=== PATIENT | male | born 1995 | race African-American/Black ===

== ENCOUNTER 2019-08-20 15:12 | Emergency (ER) | payer MEDICAID ==
[~2019-08-20] VITALS: Ht 193 cm; Wt 87.5 kg
[2019-08-20 15:32] VITALS: Ht 193 cm; Wt 87.5 kg
[2019-08-20 19:03] VITALS: BP 108/58
== END 2019-08-20 19:03 | disposition home or self-care (01) ==
LOC: ED 15:12
DX: J40 Bronchitis, not specified as acute or chronic (principal); B35.3 Tinea pedis; F20.9 Schizophrenia, unspecified; Z88.8 Allergy status to other drugs, medicaments and biological substances

== ENCOUNTER 2019-08-20 19:38 | Inpatient (IN) | payer MEDICAID ==
[~2019-08-20] VITALS: Ht 185.4 cm; Wt 89.8 kg
--- NOTE | 2019-08-20 19:40 | NUR ---
PT CALLED TO TRIAGE, NO ANSWER.
--- NOTE | 2019-08-20 20:00 | NUR ---
PT PRESENTS TO ED FOR EVAL OF SI/HI. ON INITIAL CONTACT PT PRESENTS WITH FLAT AFFECT, IS CALM AND COOPERATIVE. PT AAOX4, GCS 15. STS HE'S HERE "FOR THE SUICIDAL AND HOMICIDAL THOUGHTS"; WHEN ASKED IF HE HAS A SPECIFIC PLAN PT STS, "YEAH, I'M THINKING ANOTHER 06/13. BUT WITH A LITTLE MORE SPICE". RESP E/U, APPEARS IN NO DISTRESS. DENIES PAIN OR OTHER COMPLAINTS. REPORTS PMHX SEIZURES, BIPOLAR, SCHIZOPHRENIA.
--- NOTE | 2019-08-20 20:15 | NUR ---
PT MOVED TO [facility] FOR CLOSE OBSERVATION.
--- NOTE | 2019-08-20 20:45 | NUR ---
DR CELESTE AT BEDSIDE
--- NOTE | 2019-08-20 20:49 | NUR ---
PT MOVED TO BED 11 FOR PRIVACY FOR TELE PSYCH
[2019-08-20 21:38] LABS: BASOPHIL % 0.2 % (0-2); PLATELET COUNT 201 x10^3mcL (130-400)
[2019-08-20 21:44] LABS: RED CELL DISTRIBUTION WIDTH 15.2 % (11.5-14.5)
[2019-08-20 21:48] LABS: CALCIUM 8.5 mg/dL (8.5-10.1); CARBON DIOXIDE 27.5 mmol/L (21-32); CHLORIDE SERUM 103 mmol/L (98-107); CREATININE SERUM 1.2 mg/dL (0.7-1.3); GFR1 > 60 mL/min; GLUCOSE SERUM 93 mg/dL (74-106); POTASSIUM SERUM 3.6 mmol/L (3.5-5.1); SODIUM SERUM 140 mmol/L (136-145)
[2019-08-20 21:56] LABS: ALBUMIN 3.7 g/dL (3.4-5.0); ALKALINE PHOSPHATASE 76 U/L (46-116); ALT/SGPT 38 U/L (16-63); AST/SGOT 40 U/L (15-37); BILIRUBIN TOTAL 0.5 mg/dL (0.20-1.00); TOTAL PROTEIN, SERUM 7.5 g/dL (6.4-8.2)
--- NOTE | 2019-08-20 23:40 | NUR ---
PT PLACED ON 5150 HOLD BY ALISA AMAYA. PT MOVED TO BED 5 AT THIS TIME; BELONGINGS COLLECTED, PLACED IN LABELED BELONGINGS BAG AND PLACED IN RADIO ROOM. PT CHANGED INTO GOWN. BED IN LOW LOCKED POSITION, CURTAIN OPEN PT IN CLEAR VIEW OF NURSE'S STATION. PT REMAINS CALM AND COOPERATIVE AT THIS TIME.
--- NOTE | 2019-08-21 01:04 | NUR ---
PT RESTING WITH EYES CLOSED WITH NO SIGNS OF DISTRESS.
--- NOTE | 2019-08-21 02:21 | NUR ---
PT APPEARS TO BE ASLEEP IN [facility]; RESP E/U WITH VISIBLE CHEST RISE, APPEARS IN NO DISTRESS. VSS ON SAMPLE TAILOR AND CONTINUOUS PULSE OX. REMAINS IN FULL VIEW OF NURSE'S STATION; WILL CONTINUE TO MONITOR FOR SAFETY. AWAITING PSYCH PLACEMENT.
--- NOTE | 2019-08-21 03:59 | NUR ---
PT APPEARS TO BE SLEEPING. RESP E/U, APPEARS IN NO DISTRESS. VSS.
--- NOTE | 2019-08-21 05:58 | NUR ---
PT RESTING IN GURNEY, RESP E/U, NO DISTRESS NOTED. VSS ON TALCER AND CONTINUOUS PULSE OX. AWAITING PSYCH PLACEMENT.
--- NOTE | 2019-08-21 07:05 | NUR ---
REPORT RECEIVED FROM SONIA Morin RN. ALL QUESTIONS AND CONCERNS ADDRESSED AT THIS TIME
--- NOTE | 2019-08-21 07:30 | NUR ---
PT AWAKE AND ALERT. PT PROVIDED BREAKFAST AT THIS TIME. PT STATES HE "STILL FEELS DEPRESSED" HOWEVER PT DENIES PLAN AT THIS TIME
--- NOTE | 2019-08-21 08:30 | NUR ---
Received report from maintenance mechanic 2nd shift. Packets were faxed to the following facilities: [facility] [place]
--- NOTE | 2019-08-21 11:08 | NUR ---
PT PROVIDED WITH PEANUT BUTTER AND JELLY AND TUNA SANDWHICH ALONG WITH A 7UP PER PT REQUEST. PT SITTING UP IN BED EATING. NAD AT THIS TIME
--- NOTE | 2019-08-21 11:28 | NUR ---
FAx to the following facilities: [facility]. S/W Altagracia Pro
--- NOTE | 2019-08-21 12:02 | NUR ---
Fax packet to [facility]
--- NOTE | 2019-08-21 12:12 | NUR ---
Packet faxed to [facility]. S/W Jia
--- NOTE | 2019-08-21 12:15 | NUR ---
Fax packet to [facility]. s/W Damian
--- NOTE | 2019-08-21 14:07 | NUR ---
[facility] SENT FOR MEDICAL CLEARANCE
--- NOTE | 2019-08-21 14:41 | NUR ---
PT PROVIDED WITH ANOTHER KACEY AT THIS TIME PER REQUEST. NAD AT THIS TIME
[2019-08-21 14:57] LABS: AMPHETAMINE QUAL UR NONE DETECTED (See below)
--- NOTE | 2019-08-21 17:15 | NUR ---
PT STILL IN CLEAR VIEW OF THE NURSES STATION. PT HAS EQUAL AND UNLABORED CHEST RISE. PT CONNECTED TO FULL CM AND PULSE OX MONITORS. NAD AT THIS TIME
--- NOTE | 2019-08-21 18:00 | NUR ---
PT PROVIDED WITH MEAL TRAY AT THIS TIME. PT SEEN SITTING UP IN BED EATING MEAL TRAY. NAD AT THIS TIME
--- NOTE | 2019-08-21 19:10 | NUR ---
REPORT GIVEN TO COOPER Phillips RN. ALL QUESTIONS AND CONCERNS ADRESSED AT THIS TIME
--- NOTE | 2019-08-21 21:01 | NUR ---
PT LAYING ON GURNEY IN POSITION OF COMFORT. NO S/S OF DISTRESS. RESP E/U. PT FREQUENTLY CHANGES POSITIONS. PT IN SITE OF NURSES STATION. WILL CONTINUE TO MONITOR.
--- NOTE | 2019-08-21 21:20 | NUR ---
Shift report was given and according to the prior shift, the following facilities have received intake paperwork and are awaiting discharges. [facility]/ [facility]/ [facility]/ [facility]/ [facility]/ [facility]/ [facility]/ [facility]/ [facility]. Will follow up and monitor updates and notify facility of any changes
--- NOTE | 2019-08-21 21:56 | NUR ---
PT PROVIDED A SANDWICH
--- NOTE | 2019-08-21 22:02 | NUR ---
SPOKE WITH PEPEY FROM INSURANCE, STS PT CAN STAY HERE
--- NOTE | 2019-08-22 00:46 | NUR ---
PT LAYING ON GURNEY IN POSITION OF COMFORT. PT STS HE STILL FEELS DEPRESSED. WHEN ASKED PT IF HE WAS EXPERIENCING SI HE RESPONDED WITH "YES AND NO". WHEN K PT ABOUT HI HE SAID "ITS STILL THE SAME, BUT WHAT AM I TO DO HERE". PT STS HE IS HUNGRY BUT DOES NOT WANT A TUNA SANDWICH BECAUSE IT SEND A SUBILINAL MESSAGE, WILL TRY TO FIND SOMETHING DIFFERENT FOR PT TO EAT. PT IS IN VIEW OF NURSES STATION. WILL CONTINUE TO MONITOR. NO S/S OF DISTRESS. RESP E/U. PT PULL BLANKET OVER HIS FACE BECAUSE LIGHT IS TOO BRIGHT, PER PT.
--- NOTE | 2019-08-22 01:36 | NUR ---
PT AMBULATED TO RESTROOM ACCOMPANIED BY EMT EDEL W/STEADY GAIT.
--- NOTE | 2019-08-22 04:52 | NUR ---
REPORT GIVEN TO FLOOR RN TO ASSUME CARE
--- NOTE | 2019-08-22 05:07 | NUR ---
PT TRANSFERRED TO MED SURG FLOOR ACCOMPANIED BY NURSE AND EMT. NO S/S OF DISTRESS. RESP E/U. SITTER AT BEDSIDE TO ASSUME CARE OF PT. PT REFUSED IV AT THIS TIME.
--- NOTE | 2019-08-22 05:15 | NUR ---
PT ARRIVED [facility] ED ACCOMPANIED BY NURSE. PT IS A/OX 4 WITH NO COMPLAINTS OF GONZALEZ OR DIZZINESS, PT SPEAKS CLEARLY BUT QUIETLY, ASSESMENT PERFORMED AT THIS TIME. PT DENIES PAIN OR SOB AT THIS TIME, PT REFUSED IV ACCESS, PT IS EXPRESSING SI AT THIS TIME, PT STATES THEY ARE CONSTANTLY DEPRESSED, PT STATES THEY DO NOT CURRENTLY HAVE A PLAN AT THIS TIME, PT ORIENTED TO CONTROLS OF THE ROOM. PT STATES THEY HAVE A SIGNIFICANT HISTORY OF SI AND ATTEMPTS, PT STATED THEY "DID ALL THE DRUG THEY COULD" WHEN ATTEMPTING SUICIDE PREVIOUSLY. SITTER IS AT BEDSIDE, SIDE RAILS UP X2, BED IN THE LOWEST POSITION, CALL LIGHT WITHIN REACH, WILL CONTINUE TO MONITOR
[2019-08-22 05:29] VITALS: BP 116/58
--- NOTE | 2019-08-22 07:23 | NUR ---
RECEIVED PT FROM GENERAL LITHOGRAPHIC WORKER NURSE. PT RESTING IN BED, AOX4, RESP E/U ON RA. CALM AT THIS TIME W/ NO THOUGHTS OF SELF HARM VERBALIZED. PT W/ NO IV ACCESS. SITTER AT BEDSIDE. WILL CONTINUE TO MONITOR.
--- NOTE | 2019-08-22 07:24 | NUR ---
[facility] to continue actively working on finding placement for this pt. Will ccontact with any updates. No openings overnight per noc shift report.
[2019-08-22 07:28] LABS: BASOPHIL % 0.5 % (0-2); PLATELET COUNT 201 x10^3mcL (130-400)
[2019-08-22 07:29] LABS: RED CELL DISTRIBUTION WIDTH 15.8 % (11.5-14.5)
[2019-08-22 08:36] VITALS: BP 116/59
--- NOTE | 2019-08-22 09:04 | NUR ---
PNA VACCINE ADMINISTERED TO L DELTOID, FLU VACCINE ADMINISTERED TO R DELTOID.
[2019-08-22 10:44] LABS: CALCIUM 8.7 mg/dL (8.5-10.1); CARBON DIOXIDE 23.8 mmol/L (21-32); CHLORIDE SERUM 102 mmol/L (98-107); CREATININE SERUM 0.9 mg/dL (0.7-1.3); GFR1 > 60 mL/min; GLUCOSE SERUM 86 mg/dL (74-106); POTASSIUM SERUM 3.9 mmol/L (3.5-5.1); SODIUM SERUM 137 mmol/L (136-145)
--- NOTE | 2019-08-22 10:57 | NUR ---
[facility] s/w Howard. Packet still on wait list
--- NOTE | 2019-08-22 11:38 | NUR ---
Called the following facilities: [facility] s/w Howard, packet still in review [facility] s/w Adrienne, patient has been decline. Patient medically inappropriate to be admitted at their facility [facility] s/w Jeff no beds [place] s/w Spike no beds [facility] s/w Rajwinder, patient has been decline. Not able to accommodate
--- NOTE | 2019-08-22 12:57 | NUR ---
PT IN BED SLEEPING, AROUSABLE, RESP E/U ON RA. NO SIGNS OF ACUTE DISTRESS NOTED. BED IN LOWEST POSITION AND CALL LIGHT WITHIN REACH. SITTER AT BEDSIDE. WILL CONTINUE TO MONITOR.
[2019-08-22 13:04] VITALS: BP 120/61
--- NOTE | 2019-08-22 15:07 | NUR ---
Fax packet to [facility]. S/W Rachna
[2019-08-22 16:04] VITALS: BP 112/59
--- NOTE | 2019-08-22 16:46 | NUR ---
[facility] s/w Ana, no beds [facility] s/w Kadie, not contracted with insurance. Stated to call [facility]
--- NOTE | 2019-08-22 17:00 | NUR ---
PT SEEN AT BEDSIDE. C/O DIFFICULTY BREATHING, STATED HE HAS A HX OF ASTHMA AND USES AN INHALER BUT DID NOT BRING IT WITH HIM DURING ADMISSION. HOB ELEVATED, PLACED ON 2L NC, LUNG SOUNDS ASSESSED, AUDIBLE WHEEZES NOTED. DR. STOREY MADE AWARE. NO NEW ORDERS AT THIS TIME. WILL CONTINUE TO MONITOR.
[2019-08-22 19:10] VITALS: BP 118/52
--- NOTE | 2019-08-22 19:10 | NUR ---
RECEIVED PT ASLEEP BUT EASILY AROUSABLE.BREATHING EASY AND NOPN-LABORED.O2 SAT @ 98%.NO WHEEZIGN/CONGESTION NOTED.PREFERS TO KEEP O2 @ 1L/MIN VIA N/C.VERBALIZED SUICIDAL IDEATION BUT DENIES HEARING VOICES.ENCOURGED TO VERBALIZED FEELINGS/THOUGHTS.ON 5150 HOLD.SITTER AT BEDSIDE.BP 118/52 MMHG,HR 64.WILL CONTINUE TO MONITOR.
--- NOTE | 2019-08-22 19:14 | NUR ---
PT IN BED SLEEPING, AROUSABLE, RESP E/U ON 1L NC. NO SIGNS OF ACUTE DISTRESS NOTED. BED IN LOWEST POSITION AND CALL LIGHT WITHIN REACH. SITTER AT BEDSIDE. ENDORSED CARE TO TABLEAU ANALYST NURSE.
[2019-08-22 21:25] VITALS: BP 118/52
--- NOTE | 2019-08-23 04:39 | NUR ---
PT SLEPT WELL.NO AGITATION NOTED.SITTER AT BEDSIDE TO ASSIST WITH ADLS.DENIES HOMICIDAL IDEATION/SUICIDAL IDEATION AT THIS TIME.ON 5150 HOLD.ALL NEEDS MET.WILL CONTINUE TO MONITOR.
--- NOTE | 2019-08-23 05:16 | NUR ---
No update on bed placement through out shift. 5150 will be later today on 08/23/19 @ 5025, will endorse to oncoming AM shift.
[2019-08-23 05:39] VITALS: BP 117/66
--- NOTE | 2019-08-23 05:52 | NUR ---
[facility] to continue actively working on placement. No updates on placement per nightshift. Will contact with any updates.
[2019-08-23 06:30] LABS: CALCIUM 8.4 mg/dL (8.5-10.1); CARBON DIOXIDE 27.5 mmol/L (21-32); CHLORIDE SERUM 104 mmol/L (98-107); GFR1 > 60 mL/min; GLUCOSE SERUM 85 mg/dL (74-106); SODIUM SERUM 139 mmol/L (136-145)
[2019-08-23 06:54] LABS: BASOPHIL % 0.5 % (0-2); PLATELET COUNT 190 x10^3mcL (130-400)
[2019-08-23 07:30] LABS: RED CELL DISTRIBUTION WIDTH 15.6 % (11.5-14.5)
--- NOTE | 2019-08-23 07:52 | NUR ---
RECEIVED PATIENT FROM LAYTON HERNÁNDZE. PATIENT IN BED AT THIS TIME, CONTINUES TO HAVE SUICIDAL THOUGHTS W PLAN. CONTINUES TO ALSO STATES THAT HE WANTS TO HARM OTHERS. SPOKE WITH PATIENT ABOUT PLAN OF CARE FOR TODAY AND PATIENT AGREES. WILL AWAIT FOR DR DAVISON SAYALYSHA AND DR MENDEZ TO SPEAK WITH PATIENT. CALL LIGHT IN REACH, ROBIN RING BEDSIDE SITTER.
[2019-08-23 09:00] VITALS: BP 128/68
--- NOTE | 2019-08-23 11:27 | NUR ---
S/yan Frias at [facility]. The patient has been approved, but they are waiting on an available bed.
--- NOTE | 2019-08-23 12:03 | NUR ---
PAGED DR STOREY, SPOKE WITH HIM ABOUT PATIENT POSITIVE SCREEN OF MRSA OF THE NARES. STATES HE WILL ORDER BACTROBAN OINTMENT AND HIBICLINS PER MRSA PROTOCOL.
--- NOTE | 2019-08-23 13:12 | NUR ---
SPOKE WITH PATIENT ABOUT MRSA COLONIZATION. HAND OUT GIVEN TO PATIENT. WILL CONTINUE TO FU WITH PATIENT ABOUT ANY QUESTIONS REGARDING TREATMENT AND DISEASE PROCESS. NO COMPLAINTS AT THIS TIME, SITTER AT BEDSIDE.
[2019-08-23 13:14] VITALS: Ht 185.4 cm; Wt 89.8 kg
--- NOTE | 2019-08-23 16:08 | NUR ---
PATIENT IN BED AT THIS TIME. SLEEPING, NO SIGNS OF DISTRESS OR RESTLESSNESS. SITTER AT BEDSIDE. CALL LIGHT IN REACH.
--- NOTE | 2019-08-23 17:21 | NUR ---
RECEIVED CALL FROM JOSE FROM [facility] ABOUT PATIENT PLACEMENT. STATES THAT THEY MAY BE ABLE TO ACCEPT TRANSFER OF PATIENT TODAY DEPENDING ON PHYSICIAN ACCEPTANCE. ASKED IF PATIENT WILL BE ABLE TO BE TRANSFERRED TONIGHT BEFORE HOLD EXPIRES AT 2334. CHARGE NURSE ANGE AND HAND FUNNEL COATER PASCUAL STATED THAT TRANSPORT CAN BE PLACED ON WILL CALL ONCE PATIENT IS ACCEPTED BY FACILITY, AND JOSE MADE AWARE. CALL BACK NUMBER TO [id number] N[facility]SES STATION GIVEN. NOTIFIED DR DAVISON SAYED ABOUT PHONE CALL AND NEED FOR ORDER TO TRANSFER AND TRANSPORT IF PATIENT IS ACCEPTED BY FACILITY.
[2019-08-23] MEDS ORDERED: DIVALPROEX SOD500 M2 PO (18:06)
[2019-08-23] MEDS ORDERED: RIS1 PO (18:06)
[2019-08-23 18:07] VITALS: BP 128/68
--- NOTE | 2019-08-23 18:11 | NUR ---
JOSE FROM [facility] DIALED IN AND STATED THAT PATIENT HAS BEEN ACCEPTED BY FACILITY AND ACCEPTING PHYSICIAN IS DR BANDA. PATIENT WILL BE IN UNIT 300. INFORMED CHARGE NURSE ANGE AND ELECTRONIC EQUIPMENT TRADES WORKER PASCUAL. CALLED IN REPORT TO GAYATHRI AT [facility]. ELECTRONIC EQUIPMENT TRADES WORKER PASCUAL STATES TRANSPORT WITH [facility] WILL BE ARRIVING TO UNIT AT 1900. WILL PREPARE PATIENT FOR TRANSFER AT THIS TIME.
--- NOTE | 2019-08-23 18:47 | NUR ---
PATIENT TRANSFER PREPARED. SIGNATURES OBTAINED. WILL AWAIT FOR [facility] CREW TO ARRIVE. WILL ENDORSE TO ONCOMING NURSE IF CREW DOES NOT ARRIVE AT END OF SHIFT. PATIENT IN BED, STATES COMPLAINTS OF GONZALEZ WITH LIGHTS ON.
--- NOTE | 2019-08-23 19:37 | NUR ---
[facility] CREW IN TO TRANSPORT PATIENT. PATIENT WITH BELONGINGS ESCORTED DOWNSTAIRS VIA [facility]. [facility] CREW WITH TRANSFER PACKET.
== END 2019-08-23 19:35 | DRG 750 ==
LOC: ED 19:38 → MU 08-21 23:18
PROVIDERS: Emergency Medicine; ADMIT General Practice
DX: F20.9 Schizophrenia, unspecified (principal); R45.851 Suicidal ideations; R45.850 Homicidal ideations; J45.909 Unspecified asthma, uncomplicated; F12.10 Cannabis abuse, uncomplicated; F15.10 Other stimulant abuse, uncomplicated; D64.9 Anemia, unspecified; F31.9 Bipolar disorder, unspecified; Z91.5 Personal history of self-harm; Z91.048 Other nonmedicinal substance allergy status; Z59.0 Homelessness; Z23 Encounter for immunization; Z79.899 Other long term (current) drug therapy
CPT/HCPCS: 90658; 90732; 94150; G0378; G0480; J7620

== ENCOUNTER 2019-10-04 18:18 | Emergency (ER) | payer MEDICAID ==
[~2019-10-04] VITALS: Ht 190.5 cm; Wt 113.4 kg
[~2019-10-04 18:18] MED LIST: DIVALPROEX SOD500 M2 PO; RIS1 PO
[2019-10-04 18:26] VITALS: Ht 190.5 cm; Wt 113.4 kg
[2019-10-04 18:58] LABS: BASOPHIL % 0.6 % (0-2); PLATELET COUNT 268 x10^3mcL (130-400); RED CELL DISTRIBUTION WIDTH 15.2 % (11.5-14.5)
[2019-10-04 19:18] LABS: CALCIUM 9.7 mg/dL (8.5-10.1); CARBON DIOXIDE 28.4 mmol/L (21-32); CHLORIDE SERUM 99 mmol/L (98-107); CREATININE SERUM 1.2 mg/dL (0.7-1.3); GFR1 > 60 mL/min; GLUCOSE SERUM 78 mg/dL (74-106); POTASSIUM SERUM 4.5 mmol/L (3.5-5.1); SODIUM SERUM 136 mmol/L (136-145)
[2019-10-04 19:23] LABS: ALBUMIN 4.7 g/dL (3.4-5.0); ALKALINE PHOSPHATASE 74 U/L (46-116); ALT/SGPT 47 U/L (16-63); AST/SGOT 64 U/L (15-37); BILIRUBIN TOTAL 0.8 mg/dL (0.20-1.00); TOTAL PROTEIN, SERUM 8.8 g/dL (6.4-8.2)
[2019-10-04 21:28] LABS: AMPHETAMINE QUAL UR POSITIVE (See below)
[2019-10-04 23:41] VITALS: BP 117/53
== END 2019-10-04 23:41 | disposition home or self-care (01) ==
LOC: ED 18:18
PROVIDERS: Emergency Medicine
DX: F19.10 Other psychoactive substance abuse, uncomplicated (principal); R45.851 Suicidal ideations
CPT/HCPCS: 36415; G0480